=== PATIENT | female | born 1970 | race Caucasian/White ===

== ENCOUNTER 2018-07-07 13:29 | Emergency (ER) | payer BC, OTHER ==
[2018-07-07 14:24] VITALS: BP 116/77; PULSE 85; RESP 18; TEMP 98.4
--- NOTE | 2018-07-07 14:28 | ED ---
Upper Extremity HPI - General Chief Complaint: Extremity Injury, Upper Stated Complaint: [facility] rt wrist injury Time Seen by Provider: 07/07/18 13:56 Source: patient, RN notes reviewed Mode of arrival: ambulatory Limitations: no limitations - History of Present Illness Initial Comments: This is a 47-year-old female who denies rest medical history presenting today for chief complaint of right thumb pain. 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 The floor was wet and the surgical center and she slipped and fell. She thinks she bent back her left thumb. She states she did hit her left orbit on the edge of the and she was carrying. She denies any pain with extraocular eye movements, loss of consciousness, dizziness, headache, confusion or visual changes. Patient states that her eyes okay she is more concerned about the right thumb pain. She states the pain is localized to the base of the right thumb without radiation. She took Motrin prior to arrival. Patient placed ice on the affected area. Patient denies numbness, tingling, loss sensation, decreased range of motion. Remainder ROS negative. Upon arrival to the ER today patient's vital signs stable. - Related Data Home Medications Medication Instructions Recorded Confirmed Ibuprofen [Motrin Ib] 600 mg PO DAILY PRN 07/07/18 07/07/18 Soy Isofla/Blk Cohosh/Mag Bark 155 mg PO DAILY 07/07/18 07/07/18 [Estroven 155 mg Capsule] Allergies Allergy/AdvReac Type Severity Reaction Status Date / Time amoxicillin Allergy Rash/Hives Verified 07/07/18 14:23 cefaclor [From Ceclor] Allergy Rash/Hives Verified 07/07/18 14:23 Sulfa (Sulfonamide Allergy Rash/Hives Verified 07/07/18 14:23 Antibiotics) Review of Systems ROS Statement: Those systems with pertinent positive or pertinent negative responses have been documented in the HPI. ROS Other: All systems not noted in ROS Statement are negative. Constitutional: Denies: fever, chills, night sweats Respiratory: Denies: cough, dyspnea, wheezes, hemoptysis, stridor Cardiovascular: Denies: chest pain, palpitations Gastrointestinal: Denies: abdominal pain, nausea, vomiting, diarrhea, constipation Genitourinary: Denies: urgency, dysuria Musculoskeletal: Reports: arthralgia Skin: Reports: as per HPI (mild ecchymosis of superior left orbit). Denies: rash, lesions Neurological: Denies: headache, weakness, numbness, paresthesias, confusion, abnormal gait, vertigo Past Medical History Past Medical History: No Reported History History of Any Multi-Drug Resistant Organisms: None Reported Past Surgical History: Section Past Psychological History: No Psychological Hx Reported Smoking Status: Never smoker Past Alcohol Use History: None Reported Past Drug Use History: None Reported General Exam - General Exam Comments Initial Comments: General: The patient is awake and alert, in no distress, and does not appear acutely ill. Eye: Pupils are equal, round and reactive to light, extra-ocular movements are intact. No nystagmus. No pain with EOM. There is normal conjunctiva bilaterally. No signs of icterus. No palpable defect upon palpation of the left orbit, no crepitus. mild ecchymosis. Ears, nose, mouth and throat: There are moist mucous membranes and no oral lesions. Cardiovascular: There is a regular rate and rhythm. No murmur, rub or gallop is appreciated. Respiratory: Lungs are clear to auscultation, respirations are non-labored, breath sounds are equal. No wheezes, stridor, rales, or rhonchi. Musculoskeletal: Full active and passive ROM at the wrist b/l and MCP, PIP and DIP joints of the hands b/l, there is noted tenderness with ROM of the right thumb. Pain to palpation over the 1st metacarpal. Strength 5/5 with all joints test for ROM. Sensation intact of the UE and hands equally b/l. Radial pulses equal bilaterally 2+. Capillary refill brisk, <2sec of the right thumb. Pt is able to make the okay, fingers crossed, thumbs up signs-ulnar, median and radial n. No evidence of wrist drop. No pain to palpation of carpals b/l. Compartments are soft and compressible. No snuff box tenderness. Neurological: A&O x 3. CN II-XII intact, There are no obvious motor or sensory deficits. Coordination appears grossly intact. Speech is normal. Skin: Skin is warm and dry and no rashes or lesions are noted. Psychiatric: Cooperative, appropriate mood & affect, normal judgment. Limitations: no limitations Course Vital Signs 07/07/18 13:53 Temperature 98.4 F Pulse Rate 85 Respiratory 18 Rate Blood Pressure 116/77 O2 Sat by Pulse 98 Oximetry Medical Decision Making - Medical Decision Making Pt recently took motrin for pain mgmt. XR revealed no acute fracture, dislocation, joint spacing WNL. (-) snuff box tenderness. Case discussed in detail with Dr. Shrestha, at this time pt has a thumb sprain. Pt denies visual changes, pain with EOC, and PE reveals no signs of orbital fracture/muscular impingement- at this time I do no feel further imaging is appropriate, pt agrees. At this time I feel pt is stable for d/c with RICE instruction and repeat imaging in 7-10 days of the thumb for any persistent pain. Pt agreed with pain d/c in stable condition, denies questions at this time. Disposition Clinical Impression: Pain of right thumb Disposition: HOME SELF-CARE Condition: Good Instructions: Finger Sprain (ED), R.I.C.E. Treatment (ED) Additional Instructions: Please use over the counter pain medication as discussed. Please follow-up with family doctor in the next 2 days of symptoms have not improved. If symptoms persist for greater than 1 week i recommend repeat imaging of the thumb. Please return to emergency room if the symptoms increase or worsen or for any other concerns. Is patient prescribed a controlled substance at d/c from ED?: No Referrals: Nicole Garcia MD [Primary Care Provider] - 1-2 days Time of Disposition: 14:47
--- NOTE | 2018-07-07 14:37 | XR ---
EXAMINATION TYPE: XR hand complete RT DATE OF EXAM: 07/07/2018 COMPARISON: None HISTORY: Pain, fall, pain first metacarpal. TECHNIQUE: Three-view right hand FINDINGS: No acute fractures are evident. Soft tissues are normal. Joint spaces are preserved. No sanjuana picious first metacarpal abnormality. Follow-up exam can be performed 7-10 days from acute trauma for continued pain. IMPRESSION: 1. No acute osseous abnormality.
== END 2018-07-07 14:58 | disposition home or self-care (01) ==
LOC: SUPCPDRO 13:29 → EC 13:29
DX: S63.601A Unspecified sprain of right thumb, initial encounter (principal); S05.12XA Contusion of eyeball and orbital tissues, left eye, initial encounter; Z88.0 Allergy status to penicillin; Z88.1 Allergy status to other antibiotic agents; Z88.2 Allergy status to sulfonamides; W01.0XXA Fall on same level from slipping, tripping and stumbling without subsequent striking against object, initial encounter; Y92.69 Other specified industrial and construction area as the place of occurrence of the external cause; Y99.0 Civilian activity done for income or pay
CPT/HCPCS: 99283

== ENCOUNTER → 2018-07-24 | Outpatient (CLI) | payer BC ==
--- NOTE | 2018-07-26 11:15 | MM ---
Reason for exam: screening (asymptomatic). Last mammogram was performed 5 years ago. History: Took hormonal contraceptives for 8 years. Taking estrogen. Taking progesterone for 1 month. Took tamoxifen for 1 month. Physical Findings: A clinical breast exam by your physician is recommended on an annual basis and results should be correlated with mammographic findings. MG Screening Mammo w CAD Bilateral CC and MLO view(s) were taken. Prior study comparison: July 24, 2013, [facility] DIGITAL LEFT BREAST MAMMOGRAM w/CAD. July 20, 2013, bilateral digital screening mammo w/CAD. There are scattered fibroglandular densities. No significant changes when compared with prior studies. ASSESSMENT: Negative, BI-RAD 1 RECOMMENDATION: Routine screening mammogram of both breasts in 1 year.
== END | disposition home or self-care (01) ==
LOC: RADMAMWWP 14:46
PROVIDERS: ATTEND Obstetrics & Gynecology
DX: Z12.31 Encounter for screening mammogram for malignant neoplasm of breast (principal)
CPT/HCPCS: 77067

== ENCOUNTER → 2022-04-28 | Outpatient (CLI) | payer OTHER ==
--- NOTE | 2022-04-29 09:14 | MM ---
Reason for Exam: Screening (asymptomatic). Last mammogram was performed 3 year(s) and 9 month(s) ago. Patient History: Menarche at age 13. First Full-Term at age 21. Postmenopausal. Currently using Estrogen. Currently using Progesterone, for 1 month. Patient used Hormonal Contraceptives for 8 years. Unspecified Hormone for 1 month. Risk Values: Pinky 5 year model risk: 0.9%. NCI Lifetime model risk: 7.9%. Prior Study Comparison: 07/20/2013 Bilateral Screening Mammogram, [facility]. 07/24/2013 Left Diagnostic Mammogram, [facility]. 07/24/2018 Bilateral Screening Mammogram, [facility]. Tissue Density: There are scattered fibroglandular densities. Findings: Analyzed By CAD. Pattern appears symmetrical and stable. No suspicious groups of microcalcifications, spiculated or lobular masses, architectural distortion or other secondary signs of malignancy are mammographically apparent. Overall Assessment: Negative, BI-RAD 1 Management: Screening Mammogram of both breasts in 1 year. A negative mammogram report should not preclude additional follow up of suspicious palpable abnormalities. Patient should continue monthly self breast exam. A clinical breast exam by your physician is recommended on an annual basis and results should be correlated with mammographic findings. Electronically signed and approved by: Say Garner D.O. Radiologis
== END | disposition home or self-care (01) ==
LOC: RADMAMWWP 15:14
PROVIDERS: ATTEND Family Medicine
DX: Z12.31 Encounter for screening mammogram for malignant neoplasm of breast (principal)
CPT/HCPCS: 77063; 77067

== ENCOUNTER → 2023-12-30 | Outpatient (CLI) | payer OTHER ==
--- NOTE | 2023-12-30 09:34 | BD ---
EXAMINATION TYPE: Axial Bone Density DATE OF EXAM: 12/30/2023 CLINICAL HISTORY: 53 years old Female. ICD-10 CODE: Z13.820 ENCOUNTER FOR SCREENING FOR OSTEOPOROSIS Height: 65 Weight: 140.5 FRAX RISK QUESTIONS: Alcohol (3 or more units per day): no Family History (Parent hip fracture): no Glucocorticoids (More than 3mos): no (Ex: prednisone, prednisolone, methylprednisolone, dexamethasone, and hydrocortisone). History of Fracture in Adulthood: no Secondary Osteoporosis: 1. Type 1 Diabetes: no 2. Hyperthyroidism: no 3. Menopause before 45: no 4. Malnutrition: no 5. Chronic liver disease: no Rheumatoid Arthritis: no Current Tobacco Use: no RISK FACTORS HISTORY OF: Surgery to Spine/Hip(right/left)/Wrist (right/left): no EXAM MEASUREMENTS: Bone mineral densitometry was performed using the [employer] System. Bone mineral density as measured about the Lumbar spine is: ----- L1-L4(G/cm2): 1.101 T Score Values are as follows: ----- L1: 0.0 ----- L2: -0.9 ----- L3: -0.7 ----- L4: -1.1 ----- L1-L4: -0.7 Z Score Values are as follows: ----- L1: 0.7 ----- L2: -0.2 ----- L3: 0.0 ----- L4: -0.4 ----- L1-L4: 0.0 Bone mineral density : baseline Bone mineral density about the R hip (g/cm2): 0.693 Bone mineral density about the L hip (g/cm2): 0.716 T Score values are as follows: -----R Neck: -2.7 -----L Neck: -2.6 -----R Total: -2.5 -----L Total: -2.3 Z Score values are as follows: -----R Neck: -1.7 -----L Neck: -1.6 -----R Total: -1.9 -----L Total: -17 Bone mineral density : baseline FRAX%s: The graph provided illustrates a 9.0% chance for a major osteoporotic fx and a 2.2% chance fo r the hips probability for fx in 10 years time. IMPRESSION: Osteopenia (T Score between -2.5 and -1). There is slightly increased risk of fracture and the patient may be considered for treatment. Re-Screen 2-5 years. NOTE: T-SCORE=SD OF THE YOUNG ADULT MEAN.
== END | disposition home or self-care (01) ==
LOC: RADMAMWWP 08:50
PROVIDERS: ATTEND Obstetrics & Gynecology
DX: Z13.820 Encounter for screening for osteoporosis (principal); M85.89 Other specified disorders of bone density and structure, multiple sites; M81.0 Age-related osteoporosis without current pathological fracture
CPT/HCPCS: 77063; 77067; 77080

== ENCOUNTER → 2024-04-03 | Outpatient (CLI) | payer OTHER | END | disposition home or self-care (01) | LOC: LABWHC1 15:09 | PROVIDERS: ATTEND Family Medicine | DX: E87.5 Hyperkalemia (principal) | CPT/HCPCS: 36415; 84132 ==